=== PATIENT | male | born 1985 | race American Indian/Alaskan Native ===

== ENCOUNTER 2019-02-25 18:38 | Emergency (ER) | payer OTHER, BC ==
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
[2019-02-25 18:50] VITALS: BP 122/91
[2019-02-25] MEDS ORDERED: DELTASONE PO ONE (20:00)
[2019-02-25] MEDS ORDERED: FLEXERIL PO ONE (20:00)
[2019-02-25] MEDS ORDERED: NORCO 7.5/325 PO ONE (20:00)
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
--- NOTE | 2019-02-25 20:30 | XRay Report ---
PROCEDURE: XR SPINE LUMBOSACRAL 2-3V TECHNIQUE: AP, lateral and coned-down lateral views were obtained. HISTORY: pain COMPARISONS: None FINDINGS: There is mild anterior wedging T12 and L1 vertebral bodies. No discrete fracture lines are seen. I san spect this represents congenital variant or old trauma. There is mild anterior osteophytic spurring a t T11-T12 and T12-L1 disc space. There is mild narrowing of the L4-5 disc space. Posterior elements appear intact. SI joints are unrem arkable. IMPRESSION: Mild anterior wedging T12 and L1 vertebral bodies as described above suggesting congenital variant or old trauma. Correlation with physical exam recommended to exclude an acute fracture. Mild degenerative disc changes are present at T11-T12, T12-L1 and the L4-L5 disc space as described. No other abnormalities are seen.. This document is electronically signed by John Ashton MD., February 25 2019 09:28:23 PM ET
== END 2019-02-25 20:33 | disposition home or self-care (01) ==
LOC: ED 18:38
DX: S39.012A Strain of muscle, fascia and tendon of lower back, initial encounter (principal); Z87.891 Personal history of nicotine dependence; V89.2XXA Person injured in unspecified motor-vehicle accident, traffic, initial encounter; Y93.89 Activity, other specified; Y92.488 Other paved roadways as the place of occurrence of the external cause; Y99.8 Other external cause status
CPT/HCPCS: 72100; 99283; J7512